=== PATIENT | male | born 1970 | race Two or more races ===

== ENCOUNTER 2023-03-11 10:06 | Outpatient (OUT) | payer OTHER, SELFPAY ==
--- NOTE | 2023-03-11 | XR_ITS ---
The [address] [address] Patient Name: URSULA KRISHNAMURTHY MRN: [id number] date: 1970 Sex: M Assigned Patient Location: RAD Current Patient Location: [facility] Accession/Order Number: [id number] Exam Date: 03/11/2023 10:40 Report Date: 03/11/2023 18:36 At the request of: SHAVON ARREDONDO Procedure: XR shoulder LT min 2V EXAM: XR shoulder LT min 2V HISTORY: Left Shoulder pain COMPARISON: None. TECHNIQUE: 3 views left shoulder. FINDINGS: Minimal degenerative change left acromioclavicular and glenohumeral joints. No fracture or dislocation. Visualized left lung is clear. IMPRESSION: Minimal degenerative change without acute process left shoulder. Electronically authenticated by: WAYLON VALENZUELA Date: 03/11/2023 18:36
== END 2023-03-11 10:07 | disposition home or self-care (01) ==
PROVIDERS: PCP Family Medicine; Visit Provider Family Medicine
DX: M25.512 Pain in left shoulder (principal); M19.012 Primary osteoarthritis, left shoulder
CPT/HCPCS: 73030

== ENCOUNTER 2023-09-22 09:11 | Outpatient (OUT) | payer OTHER, SELFPAY ==
[2023-09-22 09:35] LABS: Basophils Absolute Auto 0.1 10^3/uL (0.0-0.1); Basophils Percent Auto 0.5 % (0.2-2.0); Eosinophils Absolute Auto 0.3 10^3/uL (0.0-0.7); Eosinophils Percent Auto 2.9 % (0.9-7.0); Hematocrit 44.2 % (42.0-54.0); Hemoglobin 14.7 g/dL (14.0-18.0); Immature Granulocytes Abs Auto 0.03 10^3/uL (0.00-0.03); Immature Granulocytes Pct Auto 0.3 % (0.0-0.5); Lymphocytes Absolute Auto 2.9 10^3/uL (1.2-3.8); Lymphocytes Percent Auto 31.3 % (20.5-60.0); Mean Corpuscular HGB Conc 33.3 g/dL (29.9-35.2); Mean Corpuscular Hemoglobin 30.5 pg (25.9-34.0); Mean Corpuscular Volume 91.7 fL (80.0-94.0); Mean Platelet Volume 9.7 fL (9.5-13.5); Monocytes Absolute Auto 0.6 10^3/uL (0.3-0.8); Neutrophils Absolute Auto 5.3 10^3/uL (1.4-6.5); Platelet Count 273 10^3/uL (150-450); Red Blood Count 4.82 10^6/uL (4.70-6.10); Red Cell Distribution Width 12.9 % (11.0-15.0); White Blood Count 9.1 10^3/uL (4.0-11.0)
[2023-09-22 09:54] LABS: Alanine Aminotransferase 26 U/L (16-63); Albumin Globulin Ratio 0.5; Albumin Level 2.5 g/dL (3.4-5.0); Alkaline Phosphatase 104 U/L (46-116); Anion Gap 12.7; Aspartate Amino Transferase 10 U/L (15-37); BUN Creatinine Ratio 14.4; Bilirubin Total 0.3 mg/dL (0.2-1.0); Calcium 8.6 mg/dL (8.5-10.1); Carbon Dioxide 27.6 mmol/L (21.0-32.0); Chloride 104 mmol/L (98-107); Chol HDL Ratio 3.3; Cholesterol 193 mg/dL (<=200); Estimated GFR (African America >60 (>=60); Estimated GFR (Non-African Ame >60 (>=60); Globulin 4.8 g/dL; Glucose 113 mg/dL (74-106); HDL Cholesterol 58 mg/dL (40-60); LDL Cholesterol Calculated 112.6 mg/dL; Potassium 4.3 mmol/L (3.5-5.1); Sodium 140 mmol/L (136-145); Total Protein 7.3 g/dL (6.4-8.2); Triglycerides 112 mg/dL (<=150); VLDL CHOLESTEROL 22.4 mg/dL
[2023-09-22 09:59] LABS: Estimated Average Glucose 151 mg/dL; Glycohemoglobin A1C 6.9 % (4.5-6.2)
== END 2023-09-22 09:12 | disposition home or self-care (01) ==
LOC: LAB 09:14
PROVIDERS: PCP Family Medicine; Visit Provider Family Medicine
DX: K21.9 Gastro-esophageal reflux disease without esophagitis (principal); E11.9 Type 2 diabetes mellitus without complications; M25.519 Pain in unspecified shoulder
CPT/HCPCS: 36415; 80053; 80061; 83036; 85025

== ENCOUNTER 2024-01-13 09:03 | Outpatient (OUT) | payer OTHER, SELFPAY ==
--- OUTSIDE RECORDS SUMMARY | 2024-01-13 09:07 | XMS_ITS | CCD ---
Author Organization [facility] Care Team Providers Care Agent Ticketing Gate Name Role Phone Atul Jeffery Unavailable MD Atul Jeffery Attending Provider DO Jacinto Bennett Primary Care Provider INOCENTE BENITO Attending Unavailable JIGNA, INOCENTE Admitting Unavailable INOCENTE BENITO Consulting Unavailable ATHENA, DR SANDS Primary Care Unavailable ATHENA, DR SANDS Consulting Unavailable ATHENA, DR SANDS Attending Unavailable ATHENA, DR SANDS Admitting Unavailable ATHENA, DR SANDS Primary Care Unavailable ATHENA, DR SANDS Primary Care Unavailable ATHENA, DR SNADS Consulting Unavailable ATHENA, DR SANDS Attending Unavailable ATHENA, DR SANDS Admitting Unavailable KESHA, DR CRISTOBAL Reddy Consulting Unavailable Lyssa Belcher Unavailable Taylor SUAREZ, Andres Lorenzana Attending Unavailable ATHENA, JACINTO Deng Primary Care Unavailable Medications Current Medications Medication Drug Class(es) Dates Sig (Normalized) Sig (Original) glimepiride 2 mg oral tablet (3 sources) Sulfonylurea Start: 03-30-2022 take 2 mg by mouth once daily Glimepiride Active 2 MG PO Daily March 30, 2022 12:00am metFORMIN hydrochloride 1000 mg / SITagliptin 50 mg oral tablet (3 sources) Biguanide, Dipeptidyl Peptidase 4 Inhibitor Start: 03-30-2022 take 1 tablet by mouth twice daily Sitagliptin-Metfo rmin ([place]) 50-1,000 mg Tablet Active 1 TAB PO Twice daily March 30, 2022 12:00am omeprazole 40 mg delayed release oral capsule (4 sources) Proton Pump Inhibitor Start: 03-30-2022 take 40 mg by mouth once daily Omeprazole Active 40 MG PO Daily March 30, 2022 12:00am Start: 03-30-2022 End: 03-30-2022 take 20 mg by mouth once daily Omeprazole Discontinued 20 MG PO Daily March 30, 2022 12:00am March 30, 2022 8:15am pioglitazone 45 mg oral tablet (3 sources) Peroxisome Proliferator Receptor alpha Agonist, Peroxisome Proliferator Receptor gamma Agonist, Thiazolidinedione Start: 03-30-2022 take 45 mg by mouth once daily Pioglitazone Active 45 MG PO Daily March 30, 2022 12:00am Problems Active Problems Problem Classification Problem Date Documented Date Episodic/Chronic Administrative/socia l admission (1 source) Dietary counseling and surveillance; Translations: [DIETARY COUNSELING AND SURVEILLANCE] Onset: 10-16-2022 Episodic Diabetes mellitus with complications (4 sources) Type 2 diabetes mellitus with hyperglycemia; Translations: [TYPE 2 DM W/HYPERGLYCEMIA] Onset: 10-13-2022 Chronic Diabetes mellitus without complication (4 sources) Type 2 diabetes mellitus without complications; Translations: [TYPE 2 DM WITHOUT COMPLICATIONS] Onset: 07-09-2022 Chronic Esophageal disorders (4 sources) Gastroesophageal reflux disease; Translations: [Gastro-esophageal reflux disease without esophagitis] Onset: 12-21-2021 Resolved: 03-16-2022 Chronic Nutritional deficiencies (1 source) Vitamin D deficiency, unspecified; Translations: [VITAMIN D DEFICIENCY UNSPECIFIED] Onset: 10-16-2022 Chronic Other nutritional; endocrine; and metabolic disorders (1 source) Obesity, unspecified; Translations: [OBESITY UNSPECIFIED] Onset: 10-16-2022 Chronic Past or Other Problems Problem Classification Problem Date Documented Da te Episodic/Chronic Abdominal pain (4 sources) Unspecified abdominal pain; Translations: [UNSPECIFIED ABDOMINAL PAIN] Onset: 12-16-2021 Episodic Nausea and vomiting (2 sources) Vomiting, unspecified; Translations: [Nausea with vomiting, unspecified] Onset: 12-21-2021 Resolved: 03-16-2022 Episodic Unclassified (1 source) Contact with and (suspected) exposure to covid-19 Z20.822 Viral infection (1 source) COVID-19 Results Test Name Value Interpretation Reference Range Facility Patient Provided Health Data on 09-21-2023 Patient Provided Health Data [id number] 0#1.00OTGTIFF [facility] Patient Handouton 09-20-2023 Patient Handout [id number] 91#1.00OTGTIFF Normal [facility] COVID/FLU/RSV RT-PCRon 10-24 SARS-CoV-2 (COVID-19) RNA JAVON+probe Ql (Unsp spec) Positive Located Within [facility] [employer] Other COVID/FLU/RSV RT-PCR Negative [facility] [employer] Other C-PEPTIDE, SERUMon 3 C-Peptide, Serum 3.6 ng/mL Normal 1.1-4.4 [facility] Comment on above: Result Comment: C-Pe ptide reference interval is for fasting patients. Performed By: #### C PEPT #### [facility] [address] [address] [address] Jurgen De La Rosa DIRECT LDLon 10-13-2022 Cholesterol in LDL [Mass/Vol] 135 mg/dL Normal [facility] Comment on above: Performed By: #### L IPID, RENAL, DLDL ####[facility] [address] [place] [address]DrMonica De La Rosa DLDL NORMAL SEE BELOW Normal [facility] Comment on above: Result Comment: <100 mg/dl OPTIMAL 100 - 129 mg/dl NEAR OR ABOVE OPTIMAL 130 - 159 mg/dl BORDERLINE HIGH 160 - 189 mg/dl HIGH >190 mg/dl VERY HIGH Performed By: #### L IPID, RENAL, DLDL ####[facility] [address] [address]DrMonica De La Rosa LIPID PROFILEon 10-13-2022 CHOL-HDL RATIO NORM SEE BELOW Normal [facility] Comment on above: Result Comment: 3.3 - 4.4 LOW RISK 4.4 - 7.1 AVERAGE RISK 7.1 - 11.0 MODERATE RISK >11.0 HIGH RISK Performed By: #### L IPID, RENAL, DLDL ####[facility] [address] [place], [place] [address]SaMonica De La Rosa Cholesterol [Mass/Vol] 210 mg/dL Critically high <=200 [facility] Comment on above: Performed By: #### L IPID, RENAL, DLDL ####[facility] [address] [place] [id number]. Jurgen De La Rosa Cholesterol in HDL [Mass/Vol] 48 mg/dL Normal 40-60 [facility] Comment on above: Performed By: #### L IPID, RENAL, DLDL ####[facility] [address] [place] [id number]. Jurgen De La Rosa Cholesterol.total/Ch olesterol in HDL [Mass ratio] 4.4 {ratio} Normal [facility] Comment on above: Performed By: #### L IPID, RENAL, DLDL ####[facility] [address] [place] [id number]. Jurgen De La Rosa HDL NORMAL > or = 60 mg/dl - LOW CARDIOVASCULAR RISK <40 mg/dl - HIGH CARDIOVASCULAR RISK Normal [facility] Comment on above: Performed By: #### L IPID, RENAL, DLDL ####[facility] [address] [place] [id number] De La Rosa Triglyceride [Mass/Vol] 461 mg/dL Critically high <=150 [facility] Comment on above: Performed By: #### L IPID, RENAL, DLDL ####[facility] [address] [place] [id number] De La Rosa VLDL CALC 92.2 mg/dL Normal [facility] Comment on above: Performed By: #### L IPID, RENAL, DLDL ####[facility] [address] [place] [id number]. Jurgen De La Rosa MICROALB CREAT RATIO RANDOMo n 10-13-2022 mALB 1.7 mg/L Normal <=30.0 [facility] Comment on above: Performed By: #### M CRR #### [facility] [address] [address] [address] Jurgen LOJAB CR RATIO 18.5 mg/g Normal 0.0-29.9 The [facility] Comment on above: Performed By: #### M CRR #### [facility] [address] [address] [address] Yilan De La Rosa MALB CR RATIO RANGE SEE BELOW Normal [facility] Comment on above: Result Comment: NO M ICROALBUMINURIA 0-29 MG/G CLINICAL MICROALBUMINURIA 30-300 MG/G MACROALBUMINURIA >300 MG/G Performed By: #### M CRR #### [facility] [address] [address] [address] Jurgen De La Rosa URINE CREAT 91.76 mg/dL Normal 20.00-300.00 [facility] Comment on above: Performed By: #### M CRR #### [facility] [address] [address] [address] Jurgen De La Rosa RENAL FUNCTION PANELon 10-13 Albumin [Mass/Vol] 3.7 g/dL Normal 3.4-5.0 [facility] Comment on above: Performed By: #### L IPID, RENAL, DLDL ####[facility] [address] [place] [address]DrMonica De La Rosa Calcium [Mass/Vol] 8.6 mg/dL Normal 8.5-10.[address] [facility] Comment on above: Performed By: #### L IPID, RENAL, DLDL ####[facility] [address] [address]Dr. Jurgen De La Rosa Chloride [Moles/Vol] 105 mmol/L Normal 98-107 [facility] Comment on above: Performed By: #### L IPID, RENAL, DLDL ####[facility] [address] [place] [address]DrMonica De La Rosa CO2 [Moles/Vol] 25.0 mmol/L Normal 21.0-32.0 [facility] Comment on above: Performed By: #### L IPID, RENAL, DLDL ####[facility] [address] [address]Dr. Jurgen De La Rosa Creatinine [Mass/Vol] 0.74 mg/dL Normal 0.70-1.30 [facility] Comment on above: Performed By: #### L IPID, RENAL, DLDL ####[facility] [address] [place] [address]Dr. Jurgen De La Rosa EGFR-AF KU[place]I >60 Normal >=60 [facility] Comment on above: Performed By: #### L IPID, RENAL, DLDL ####[facility] [address] [place] [id number]. Jurgen De La Rosa EGFR-NON AF [place]I >60 Normal >=60 [facility] Comment on above: Performed By: #### L IPID, RENAL, DLDL ####[facility] [address] [place] [address]Dr. Jurgen De La Rosa Glucose [Mass/Vol] 165 mg/dL Critically high 74-[address] [facility] Comment on above: Performed By: #### L IPID, RENAL, DLDL ####[facility] [address] [place] [address]Dr. Jurgen De La Rosa Phosphate [Mass/Vol] 3.7 mg/dL Normal 2.6-4.7 [facility] Comment on above: Performed By: #### L IPID, RENAL, DLDL ####[facility] [address] [place] [address]Dr. Jurgen De La Rosa Potassium [Moles/Vol] 4.2 mmol/L Normal 3.5-5.1 [facility] Comment on above: Performed By: #### L IPID, RENAL, DLDL ####[facility] [address] [place] [address]Dr. Jurgen De La Rosa Sodium [Moles/Vol] 139 mmol/L Normal 136-145 [facility] Comment on above: Performed By: #### L IPID, RENAL, DLDL ####[facility] [address] [place] [address]Dr. Jurgen De La Rosa Urea nitrogen [Mass/Vol] 23.0 mg/dL Critically high 7.0-18.0 [facility] Comment on above: Performed By: #### L IPID, RENAL, DLDL ####[facility] [address] [place] [address]Dr. Jurgen De La Rosa VITAMIN D 25 OHon 10-13-2022 VIT D 25-OH 11.7 ng/mL Normal [facility] Comment on above: Performed By: #### V ITAD #### [facility] [address] [place] [address] Dr. Jurgen De La Rosa VIT D RANGES SEE BELOW Normal [facility] Comment on above: Result Comment: <20 ng/mL Vit D deficient 20 - <30 ng/mL Vit D insufficient 30 - 100 ng/mL Vit D sufficient >100 ng/mL Potential Toxicity Performed By: #### V ITAD #### [facility] [address] [place] [address] Dr. Jurgen De La Rosa CBC AUTO DIFFon 07-09-2022 BASO # 0.1 103/ul Normal 0.0-0.1 [facility] Comment on above: Performed By: #### C BC #### [facility] [address] [place] [address] Dr. Jurgen De La Rosa Basophils/100 WBC (Bld) 0.7 % Normal 0.2-2.0 [facility] Comment on above: Performed By: #### C BC #### [facility] [address] [place] [address] Dr. Jurgen De La Rosa EO # 0.4 103/ul Normal 0.0-0.7 [facility] Comment on above: Performed By: #### C BC #### [facility] [address] [place] [address] Dr. Jurgen De La Rosa Eosinophils/100 WBC (Bld) 4.3 % Normal 0.9-7.0 [facility] Comment on above: Performed By: #### C BC #### [facility] [address] [place] [address] Dr. Jurgen De La Rosa Erythrocyte distribution width (RBC) [Ratio] 13.0 % Normal 11.0-15.0 [facility] Comment on above: Performed By: #### C BC #### [facility] [address] [place] [address] Dr. Jurgen De La Rosa Hematocrit (Bld) [Volume fraction] 46.1 % Normal 42.0-54.0 [facility] Comment on above: Performed By: #### C BC #### [facility] [address] [place] [address] Dr. Jurgen De La Rosa Hemoglobin (Bld) [Mass/Vol] 15.1 g/dL Normal 14.0-18.0 [facility] Comment on above: Performed By: #### C BC #### [facility] [address] [place] [address] Dr. Jurgen De La Rosa IG # 0.03 10e3/ul Normal 0.00-0.03 [facility] Comment on above: Performed By: #### C BC #### [facility] [address] [place] [address] Dr. Jurgen De La Rosa IG % 0.3 % Normal 0.0-0.5 [facility] Comment on above: Performed By: #### C BC #### [facility] [address] [place] [address] Dr. Jurgen De La Rosa LYMPH # 2.8 103/ul Normal 1.2-3.8 [facility] Comment on above: Performed By: #### C BC #### [facility] [address] [place] [address] Dr. Jurgen De La Rosa Lymphocytes/100 WBC (Bld) 30.7 % Normal 20.5-60.0 [facility] Comment on above: Performed By: #### C BC #### [facility] [address] [place] [address] Dr. Jurgen De La Rosa MANUAL DIFF REQ NO Normal [facility] Comment on above: Performed By: #### C BC #### [facility] [address] [place] [address] Dr. Jurgen De La Rosa MCH (RBC) [Entitic mass] 29.5 pg Normal 25.9-34.0 [facility] Comment on above: Performed By: #### C BC #### [facility] [address] [place] [address] Dr. Jurgen De La Rosa MCHC (RBC) [Mass/Vol] 32.8 g/dL Normal 29.9-35.2 [facility] Comment on above: Performed By: #### C BC #### [facility] [address] [place] [address] Dr. Jurgen De La Rosa MCV (RBC) [Entitic vol] 90.2 fL Normal 80.0-94.0 [facility] Comment on above: Performed By: #### C BC #### [facility] [address] [address] [address] Jurgen De La Rosa MONO # 0.9 103/ul Critically high 0.3-0.8 [facility] Comment on above: Performed By: #### C BC #### [facility] [address] [address] [address] Jurgen De La Rosa Monocytes/100 WBC (Bld) 10.0 % Normal 1.7-12.0 [facility] Comment on above: Performed By: #### C BC #### [facility] [address] [place] [address] Dr. Jurgen De La Rosa NEUT # 4.8 103/ul Normal 1.4-6.5 [facility] Comment on above: Performed By: #### C BC #### [facility] [address] [place] [address] Dr. Jurgen De La Rosa Neutrophils/100 WBC (Bld) 54.0 % Normal 43.0-75.0 [facility] Comment on above: Performed By: #### C BC #### [facility] [address] [place] [address] Dr. Jurgen De La Rosa Platelet mean volume (Bld) [Entitic vol] 9.5 fL Normal 9.5-13.5 [facility] Comment on above: Performed By: #### C BC #### [facility] [address] [place] [address] Dr. Jurgen De La Rosa PLT 266 103/ul Normal 150-450 [facility] Comment on above: Performed By: #### C BC #### [facility] [address] [place], [place] [id number] Dr. Jurgen De La Rosa RBC 5.11 106/ul Normal 4.70-6.10 [facility] Comment on above: Performed By: #### C BC #### [facility] [address] [place] [address] Dr. Jurgen De La Rosa WBC 9.0 103/ul Normal 4.0-11.0 [facility] Comment on above: Performed By: #### C BC #### [facility] [address] [address] [address] Jurgen De La Rosa GLYCOHEMOGLOBIN A1Con 2021 ADA RECOMMENDATION SEE BELOW Normal [facility] Comment on above: Result Comment: ADA RECOMMENDED LIMIT 4.0 - 6.0 ADA THERAPEUTIC TARGET < 7.0 ACTION SUGGESTED > 7.0 Performed By: #### A 1C #### [facility] [address] [address] [address] Jurgen De La Rosa Glucose [Mass/Vol] 249 mg/dL Normal [facility] Comment on above: Performed By: #### A 1C #### [facility] [address] [place] [address] Dr. Jurgen De La Rosa HbA1c (Bld) [Mass fraction] 10.3 % Critically high 4.5-6.2 [facility] Comment on above: Performed By: #### A 1C #### [facility] [address] [place] [address] Dr. Jurgen De La Rosa LIPID PROFILEon 07-09-2022 CHOL-HDL RATIO NORM SEE BELOW Normal [facility] Comment on above: Result Comment: 3.3 - 4.4 LOW RISK 4.4 - 7.1 AVERAGE RISK 7.1 - 11.0 MODERATE RISK >11.0 HIGH RISK Performed By: #### C MP, LIPID #### [facility] [address] [place] [address] Dr. Jurgen De La Rosa Cholesterol [Mass/Vol] 225 mg/dL Critically high <=200 [facility] Comment on above: Performed By: #### C MP, LIPID #### [facility] [address] [place] [address] Dr. Jurgen De La Rosa Cholesterol in HDL [Mass/Vol] 51 mg/dL Normal 40-60 [facility] Comment on above: Performed By: #### C MP, LIPID #### [facility] [address] [place] [address] Dr. Jurgen De La Rosa Cholesterol in LDL [Mass/Vol] 140.2 mg/dL Normal [facility] Comment on above: Performed By: #### C MP, LIPID #### [facility] [address] [address] [address] Jurgen De La Rosa Cholesterol.total/Ch olesterol in HDL [Mass ratio] 4.4 {ratio} Normal [facility] Comment on above: Performed By: #### C MP, LIPID #### [facility] [address] [address] [address] Jurgen De La Rosa HDL NORMAL > or = 60 mg/dl - LOW CARDIOVASCULAR RISK <40 mg/dl - HIGH CARDIOVASCULAR RISK Normal [facility] Comment on above: Performed By: #### C MP, LIPID #### [facility] [address] [place] [address] Dr. Jurgen De La Rosa LDL CALC NORMAL SEE BELOW Normal [facility] Comment on above: Result Comment: <100 mg/dl OPTIMAL 100 - 129 mg/dl NEAR OR ABOVE OPTIMAL 130 - 159 mg/dl BORDERLINE HIGH 160 - 189 mg/dl HIGH >190 mg/dl VERY HIGH Performed By: #### C MP, LIPID #### [facility] [address] [place] [address] Dr. Jurgen De La Rosa Triglyceride [Mass/Vol] 169 mg/dL Critically high <=150 [facility] Comment on above: Performed By: #### C MP, LIPID #### [facility] [address] [place] [address] Dr. Jurgen De La Rosa VLDL CALC 33.8 mg/dL Normal [facility] Comment on above: Performed By: #### C MP, LIPID #### [facility] [address] [address] [address] Jurgen De La Rosa MICROALBUMIN, RAND URon 06-12 mALB 1.9 mg/L Normal <=30.0 [facility] Comment on above: Performed By: #### M ALBR #### [facility] [address] [place] [address] Dr. Jurgen De La Rosa PROF 14(COMP METB)on 022 Albumin [Mass/Vol] 3.8 g/dL Normal 3.4-5.0 [facility] Comment on above: Performed By: #### C MP, LIPID #### [facility] [address] [address] [address] Jurgen De La Rosa Albumin/Globulin [Mass ratio] 1.2 {ratio} Normal [facility] Comment on above: Performed By: #### C MP, LIPID #### [facility] [address] [address] [address] Jurgen De La Rosa ALP [Catalytic activity/Vol] 94 U/L Normal 46-116 [facility] Comment on above: Performed By: #### C MP, LIPID #### [facility] [address] [place] [address] Dr. Jurgen De La Rosa ALT [Catalytic activity/Vol] 40 U/L Normal 16-63 [facility] Comment on above: Performed By: #### C MP, LIPID #### [facility] [address] [place] [address] Dr. Jurgen De La Rosa Anion gap [Moles/Vol] 12.6 mmol/L Normal [facility] Comment on above: Performed By: #### C MP, LIPID #### [facility] [address] [place] [address] Dr. Jurgen De La Rosa AST [Catalytic activity/Vol] 18 U/L Normal 15-37 [facility] Comment on above: Performed By: #### C MP, LIPID #### [facility] [address] [place] [address] Dr. Jurgen De La Rosa Bilirubin [Mass/Vol] 0.3 mg/dL Normal 0.2-1.0 [facility] Comment on above: Performed By: #### C MP, LIPID #### [facility] [address] [place] [address] Dr. Jurgen De La Rosa Calcium [Mass/Vol] 9.0 mg/dL Normal 8.5-10.1 [facility] Comment on above: Performed By: #### C MP, LIPID #### [facility] [address] [place] [address] Dr. Jurgen De La Rosa Chloride [Moles/Vol] 101 mmol/L Normal 98-107 [facility] Comment on above: Performed By: #### C MP, LIPID #### [facility] [address] [place] [address] Dr. Jurgen De La Rosa CO2 [Moles/Vol] 29.0 mmol/L Normal 21.0-32.0 [facility] Comment on above: Performed By: #### C MP, LIPID #### [facility] [address] [place] [address] Dr. Jurgen De La Rosa Creatinine [Mass/Vol] 0.83 mg/dL Normal 0.70-1.30 [facility] Comment on above: Performed By: #### C MP, LIPID #### [facility] [address] [place] [address] Dr. Jurgen De La Rosa EGFR-AF KUWAITI >60 Normal >=60 [facility] Comment on above: Performed By: #### C MP, LIPID #### [facility] [address] [place] [address] Dr. Jurgen De La Rosa EGFR-NON AF [place]I >60 Normal >=60 [facility] Comment on above: Performed By: #### C MP, LIPID #### [facility] [address] [place] [address] Dr. Jurgen De La Rosa Globulin (S) [Mass/Vol] 3.3 g/dL Normal [facility] Comment on above: Performed By: #### C MP, LIPID #### [facility] [address] [place] [address] Dr. Jurgen De La Rosa Glucose [Mass/Vol] 222 mg/dL Critically high 74-106 [facility] Comment on above: Performed By: #### C MP, LIPID #### [facility] [address] [place] [address] Dr. Jurgen De La Rosa Potassium [Moles/Vol] 5.6 mmol/L Critically high 3.5-5.1 [facility] Comment on above: Performed By: #### C MP, LIPID #### [facility] [address] [place] [address] Dr. Jurgen De La Rosa Protein [Mass/Vol] 7.1 g/dL Normal 6.4-8.2 [facility] Comment on above: Performed By: #### C MP, LIPID #### [facility] [address] [place] [address] Dr. Jurgen De La Rosa Sodium [Moles/Vol] 137 mmol/L Normal 136-145 [facility] Comment on above: Performed By: #### C MP, LIPID #### [facility] [address] [place], [place] [address] Dr. Jurgen De La Rosa Urea nitrogen [Mass/Vol] 15.0 mg/dL Normal 7.0-18.0 [facility] Comment on above: Performed By: #### C MP, LIPID #### [facility] [address] [place], [place] [address] Dr. Jurgen De La Rosa Urea nitrogen/Creatinine [Mass ratio] 18.1 mg/mg Normal [facility] Comment on above: Performed By: #### C MP, LIPID #### [facility] [address] [id number] Jurgen De La Rosa Glucose Glucometer (BldC) [M ass/Vol]Ordered By: Atul Jeffery on 03-30-2022 Glucose [Mass/Vol] 176 mg/dL [facility] Comment on above: Random Glucose Refer ence Range is dependent on time and content of last meal. Glucose of more than 200 mg/dL in a nonstressed, ambulatory subject supports the diagnosis of Diabetes Mellitus. Glucose Poct Glucometerson 0 03-30-2022 Glucose [Mass/Vol] 176 mg/dL Normal [facility] Comment on above: Result Comment: Ada Glucose Reference Range is dependent on time and content of last meal. Glucose of more than 200 mg/dL in a nonstressed, ambulatory subject supports the diagnosis of Diabetes Mellitus. PERFORMED BY: [facility] [address] [place] [address] PATHOLOGIST COKE INSPECTOR EFREN ZACARIAS M.D. Performed By: #### G LULS #### Point of Care testing , Glucose [Mass/Vol] 211 mg/dL Normal [facility] Comment on above: Result Comment: Ada om Glucose Reference Range is dependent on time and content of last meal. Glucose of more than 200 mg/dL in a nonstressed, ambulatory subject supports the diagnosis of Diabetes Mellitus. PERFORMED BY: [facility] [address] [id number] PATHOLOGIST COKE INSPECTOR EFREN ZACARIAS M.D. Performed By: #### G KOLE #### Point of Care testing , COVID[place]19 [facility] [place] SARS-CoV-2 (COVID-19) RNA JAVON+probe Ql (Unsp spec) Negative Normal Negative [facility] Comment on above: Order Comment: Healt hcare Worker?: N Result Comment: Testing for SARS-CoV-2 by RT-PCR This test was developed and its performance characteristics determined by [employer] ([employer]) and validated at the [facility]. This test has not been FDA cleared or approved. This test has been authorized by FDA under an Emergency Use Authorization (EUA). This test has been validated in accordance with the FDA's Guidance Document (Policy for Diagnostics Testing in Laboratories Certified to Perform High Complexity Testing under CLIA prior to Emergency Use Authorization for Coronavirus Disease-2019 during the Public Health Emergency) issued on December 12, 2019. This test is only authorized for the duration of time the declaration that circumstances exist justifying the authorization of the emergency use of in vitro diagnostic tests for detection of SARS-CoV-2 virus and/or diagnosis of COVID-19 infection under section 564(b)(1) of the Act, 21 U.S.C. 360bbb-3(b)(1), unless the authorization is terminated or revoked sooner. PERFORMED BY: [place] [address] PATHOLOGIST COKE INSPECTOR EFREN ZACARIAS M.D. Performed By: #### C OVID 19 [facility] #### [place] [id number] [facility] COVID-19 Positive/NegativeOr dered By: Atul Jeffery on 03-28-2022 SARS-CoV-2 (COVID-19) N gene JAVON+probe Ql (Resp) Negative Negative [facility] Comment on above: Testing for SARS-CoV -2 by RT-PCR This test was developed and its performance characteristics determined by [employer] ([employer]) and validated at the [facility]. This test has not been FDA cleared or approved. This test has been authorized by FDA under an Emergency Use Authorization (EUA). This test has been validated in accordance with the FDA's Guidance Document (Policy for Diagnostics Testing in Laboratories Certified to Perform High Complexity Testing under CLIA prior to Emergency Use Authorization for Coronavirus Disease-2019 during the Public Health Emergency) issued on December 12, 2019. This test is only authorized for the duration of time the declaration that circumstances exist justifying the authorization of the emergency use of in vitro diagnostic tests for detection of SARS-CoV-2 virus and/or diagnosis of COVID-19 infection under section 564(b)(1) of the Act, 21 U.S.C. 360bbb-3(b)(1), unless the authorization is terminated or revoked sooner. Vital Signs Date Time Vital Sign Value Performing Clinician Facility 10-24-2022 15:50-0500 Body height 165.1 cm Lyssa Belcher Other [facility] Other 10-24-2022 15:50-0500 Body mass index (BMI) [Ratio] 34.11 kg/m2 Lyssa Belcher Other [facility] Other 10-24-2022 15:50-0500 Body temperature 98 [degF] Lyssa Belcher Other [facility] Other 10-24-2022 15:50-0500 Body weight 92.99 kg Lyssa Belcher Other [facility] Other 10-24-2022 15:50-0500 Respiratory rate 18 /min Lyssa Belcher Other [facility] Other 10-24-2022 15:50-0500 SaO2% (BldA) [Mass fraction] 99 % Lyssa Belcher Other [facility] Other 03-30-2022 08:48-0400 Diastolic blood pressure 81 mm[Hg] MD Atul Jeffery Work Phone: [facility] 03-30-2022 08:48-0400 Heart rate 63 /min MD Atul Jeffery Work Phone: [facility] 03-30-2022 08:48-0400 Respiratory rate 18 /min MD Atul Jeffery Work Phone: [facility] 03-30-2022 08:48-0400 SaO2% (BldA) [Mass fraction] 98 % MD Atul Jeffery Work Phone: [facility] 03-30-2022 08:48-0400 Systolic blood pressure 121 mm[Hg] MD Atul Jeffery Work Phone: [facility] 03-30-2022 07:20-0400 Body height 165.1 cm MD Atul Jeffery Work Phone: [facility] 03-30-2022 07:20-0400 Body weight 93.44 kg MD Atul Jeffery Work Phone: [facility] 03-29-2022 13:04-0400 Body mass index (BMI) [Ratio] 35.9 kg/m2 MD Atul Jeffery Work Phone: [facility] 03-16-2022 15:15-0400 Body height 165.1 cm Atul Jeffery Other Loc[facility] [employer] Other 03-16-2022 15:15-0400 Body mass index (BMI) [Ratio] 33.61 kg/m2 Atul Jeffery Other [facility] [employer] Other 03-16-2022 15:15-0400 Body weight 91.63 kg Atul Jeffery Other [facility] Other 03-16-2022 15:15-0400 Diastolic blood pressure 81 mm[Hg] Atul Jeffery Other [facility] Other 03-16-2022 15:15-0400 Systolic blood pressure 127 mm[Hg] Atul Jeffery Other [facility] Other Encounters Encounter Date Encounter Type Care Provider Facility Start: 09-20-2023 End: 09-21-2023 ambulatory Andres Vazquez MD Facility[facility] Start: 10-24-2022 End: 10-24-2022 ambulatory Lyssa Belcher Other [facility] Other Start: 10-24-2022 Office outpatient visit 15 minutes Lyssa Belcher [facility] Start: 10-13-2022 End: 10-14-2022 ambulatory INOCENTE BENITO Facility:[facility] Start: 07-09-2022 End: 07-10-[address] JACINTO BENNETT Facility:[facility] Start: 03-30-2022 End: 03-30-2022 Admission to same day surgery center MD Atul Jeffery Work Phone: [facility] Start: 03-28-2022 End: 03-28-2022 Patient encounter procedure MD Atul Jeffery Work Phone: [facility] Start: 03-16-2022 End: 03-16-2022 ambulatory Atul Jeffery Other [facility] Other Start: 03-16-2022 [facility] visit new patient Atul Jeffery [facility] Start: 12-16-2021 End: 12-17-[address] JACINTO BENNETT Facility:[facility] Procedures Date Procedure Procedure Detail Performing Clinician Start: 03-30-2022 Esophagogastroduodenoscopy MD Atul Jeffery Work Phone: Plan of Treatment Date Care Activity Detail Author Start: 03-30-2022 [facility] Work Phone: Immunizations Immunization Date Immunization Notes Care Provider Fa cility 08-11-2021 COVID-19 Lilo Collier (Pfizer) MD Atul Jeffery Work Phone: [facility] 12-27-2020 COVID-19 Lilo Collier (Pfizer) MD Atul Jeffery Work Phone: [facility] 12-06-2020 COVID-19 Lilo Collier (Pfizer) MD Atul Jeffery Work Phone: [facility] Payers Date Payer Category Payer Unknown [id number] [id number] [id number] 1970 Unknown [id number] [id number] [id number] 1970 Unknown [id number] [id number] 1970 Unknown [id number] 1959 Unknown [id number] Self-pay Self Pay [id number] Unknown [employer] [id number] Social History Date Type Detail Facility Sex Assigned At [facility] Other Start: 1970 Sex Assigned At Male F [facility] Start: 03-30-2022 Tobacco smoking stat us MEIS Ex-smoker (finding) [facility] Goals Date Patient Goal Desired Activity /State Medication management note 10-18-2023 Note Date & Type Note Facility 10-18-2023 Note Entered by EWA BENNETT DO on October 18, 2023 07:42:10 EST From: JACINTO BENNETT DO To: [id number] Sent: 10/18/2023 07:42:10 EST Subject: Medication Management Submitted: Complete:diclofenac (diclofenac sodium 75 mg oral delayed release tablet) Signed by JACINTO BENNETT DO 10/18/2023 07:42:00 EST Approved with modifications: diclofenac (DICLOFENAC SOD EC 75 MG TAB) TAKE 1 TABLET BY MOUTH TWICE A DAY Qty: 60 tab(s) Days Supply: 30 Refills: 2 Substitutions Allowed Route To Pharmacy - [id number] From: [id number] To: JACINTO BENNETT DO Sent: October 18, 2023 1:53:02 AM [employer] Subject: Medication Management Due: October 19, 2023 12:20:38 AM [employer] On Hold Pending Signature Dispensed Drug: diclofenac (diclofenac sodium 75 mg oral delayed release tablet), TAKE 1 TABLET BY MOUTH TWICE A DAY Quantity: 60 tab(s) Days Supply: 30 Refills: 0 Substitutions Allowed Notes from Pharmacy: [facility] Evaluation note 10-24-2022 Note Date & Type Note Facility 10-24-2022 Evaluation note Encounter Date Diagnosis Assessment Notes Oct, Contact with and (suspected) exposure to covid-19 (ICD-10 - Z20.822) Oct, COVID-19 (ICD-10 - U07.1) Discharge Instructions for COVID-19 (Suspected or Confirmed ) material was printed Drink plenty fluids, get plenty of rest. Take Tylenol or Motrin as needed for aches pains or fevers. Continue home medications as prescribed. You must quarantine for 5 days after the onset of your symptoms of COVID. Follow-up with your family physician for any further concerns [facility] Other Procedure note 03-30-2022 Note Date & Type Note Facility 03-30-[address] [facility] Evaluation note 03-16-2022 Note Date & Type Note Facility 03-16-2022 Evaluation note Encounter Date Diagnosis Assessment Notes Mar, GERD (gastroesopha geal reflux disease) (ICD-10 - K21.9) Pt to take Omeprazole 30 minutes prior to the first meal of the day. Mar, Vomiting (ICD-10 - R11.10) [facility] Other Clinical Note 12-16-2021 Note Date & Type Note Facility 12-16-2021 Note PROCEDURE: XR GI UPP ER AIR KUB DUAL CONTRAST, XR CINERADIOGRAPHY COMPARISON: None. HISTORY: Abdominal pain ; feeling of bloating, nausea, and concern for vomiting after eating TECHNIQUE: An air contrast upper gastrointestinal series was performed in the usual manner. Standard level fluoroscopic mode of operation utilized. FINDINGS: ESOPHAGUS:Several episodes of prominent gastroesophageal reflux. No stricture, abnormal dilation, appreciable mucosal irregularity. STOMACH: No obstruction, mass, or ulceration. Normal motility. DUODENUM:No ulceration or diverticulum. OTHER: Negative. IMPRESSION: 1. Moderate gastroesophageal reflux likely contributing to patient's symptoms. Electronically authenticated by: CRISTOBAL REBOLLEDO Date: 2021-12-16 09:52 [facility] Clinical Note 12-16-2021 Note Date & Type Note Facility 12-16-2021 Note PROCEDURE: XR GI UPP ER AIR KUB DUAL CONTRAST, XR CINERADIOGRAPHY COMPARISON: None. HISTORY: Abdominal pain ; feeling of bloating, nausea, and concern for vomiting after eating TECHNIQUE: An air contrast upper gastrointestinal series was performed in the usual manner. Standard level fluoroscopic mode of operation utilized. FINDINGS: ESOPHAGUS:Several episodes of prominent gastroesophageal reflux. No stricture, abnormal dilation, appreciable mucosal irregularity. STOMACH: No obstruction, mass, or ulceration. Normal motility. DUODENUM:No ulceration or diverticulum. OTHER: Negative. IMPRESSION: 1. Moderate gastroesophageal reflux likely contributing to patient's symptoms. Electronically authenticated by: CRISTOBAL REBOLLEDO Date: 2021-12-16 09:52 [facility] Evaluation note Note Date & Type Note Facility Evaluation note No assessment information [facility] Work Phone: History general Narrative - Reported Note Date & Type Note Facility History general Narrative - Reported Type Medical History GERD (gastroesophageal reflux di sease) Medical History Diabetes Located Within [facility] [employer] Other Reason for visit Narrative Note Date & Type Note Facility Reason for visit Narrative PATIENT HERE AT THE REQUEST OF DR. BENNETT FOR EVALUATION & TREATMENT OF GERD, Last EGD 2001 done for dysphagia Loc[facility] [employer] Other Chief Complaint and Reason for Visit Chief Complaint GERD, Vomiting Chief Complaint GERD, Vomiting GERD, Vomiting Advance Directives No Advanced Directives Records Found Advance Directive Response Recorded Date/ Time Advance Directives No March 25 4:39pm Family History No Family History Records Found Relationship Condition Age at Onset Recorded Date/T jamison Not Specified Hypertension Unknown brother Malignant neoplasm of prostate Unknown Summary Purpose Additional Source Comments Care Teams (unrecognized sec tion and content) Team Status: Inactive Member Role Status Dates Atul Jeffery MD Attending Provider Active Jacinto Bennett DO Primary Care Provider Active Team Status: Active Member Role Status Dates Jacinto Bennett DO Primary Care Provider Active Goals (unrecognized section and content) Goals may be documented in a n alternate section (unrecognized sect ion and content) No Status Records FoundNo Status Records FoundNo Status Records Found INFORMATION SOURCE (unrecogn ized section and content) DATE CREATED AUTHOR 04/04/2022 [facility] DATE CREATED AUTHOR AUTHOR'S ORGANIZ ATION 10/16/2022 [facility] DATE CREATED AUTHOR AUTHOR'S ORGANIZ ATION 10/19/2023 [facility] REASON FOR VISIT (unrecogniz ed section and content) SORE THROAT, BODY ACHES, SIN US CONGESTION; REQUESTING COVID TEST FOR RECORDS PERTAINING TO PATIENTS WHO ARE OR HAVE BEEN ENROLLED IN A CHEMICAL DEPENDENCY/SUBSTANCEABUSE PROGRAM, SOME INFORMATION MAY BE OMITTED. This clinical summary was aggregated from multiple sources. Caution should be exercised in using it in the provision of clinical care. This summary normalizes information from multiple sources, and as a consequence, information in this document may materially change the coding, format and clinical context of patient data. In addition, data may be omitted in some cases. CLINICAL DECISIONS SHOULD BE BASED ON THE PRIMARY CLINICAL RECORDS. [facility] [employer] [facility]. provides no warranty or guarantee of the accuracy or completeness of information in this document.
[2024-01-13 10:10] LABS: Creatinine Urine Random 89.43 mg/dL (20.00-300.00); Microalbum Creatinine Ratio Ur 14.5 mg/g (0.0-29.9); Microalbumin Urine Random <1.3 mg/dL (<=30.0)
[2024-01-13 10:11] LABS: Albumin Level 3.6 g/dL (3.4-5.0); Anion Gap 10.6; Calcium 9.2 mg/dL (8.5-10.1); Carbon Dioxide 28.9 mmol/L (21.0-32.0); Chloride 104 mmol/L (98-107); Cholesterol 160 mg/dL (<=200); Estimated GFR (African America >60 (>=60); Estimated GFR (Non-African Ame >60 (>=60); Glucose 138 mg/dL (74-106); HDL Cholesterol 54 mg/dL (40-60); LDL Cholesterol Calculated 90.4 mg/dL; Phosphorus 3.5 mg/dL (2.6-4.7); Potassium 4.5 mmol/L (3.5-5.1); Sodium 139 mmol/L (136-145); Triglycerides 78 mg/dL (<=150); VLDL CHOLESTEROL 15.6 mg/dL
== END 2024-01-13 09:04 | disposition home or self-care (01) ==
LOC: LAB 09:05
PROVIDERS: PCP Internal Medicine; Visit Provider Internal Medicine
DX: E11.65 Type 2 diabetes mellitus with hyperglycemia (principal); Z71.3 Dietary counseling and surveillance; E55.9 Vitamin D deficiency, unspecified
CPT/HCPCS: 36415; 80061; 80069; 82043; 82306; 82570